=== PATIENT | female | born 1960 | race Caucasian/White ===

== ENCOUNTER 2019-03-02 06:15 | Day surgery (SDC) | payer OTHER ==
[2019-03-02] MEDS ORDERED: MIDAZOLAM 2 MG/2 ML VIAL IVP ONE (06:16)
[2019-03-02] MEDS ORDERED: GLYCOPYRROLATE 1 MG/5 ML VIAL IVP ONE (06:16)
[2019-03-02] MEDS ORDERED: ePHEDrine 50 MG/ML VIAL IVP ONE (06:16)
[2019-03-02] MEDS ORDERED: NEOSTIGMINE 1 MG/1 ML 10 ML MDV IVP ONE (06:16)
[2019-03-02] MEDS ORDERED: DEXAMETHASONE 4 MG/ML VIAL IVP ONE (06:16)
[2019-03-02] MEDS ORDERED: PROPOFOL 200 MG/20 ML VIAL IVP ONE (06:16)
[2019-03-02] MEDS ORDERED: ROCURONIUM 50 MG/5 ML VIAL IVP ONE (06:16)
[2019-03-02] MEDS ORDERED: LACTATED RINGERS 1,000 ML IV ONE ×2 (06:50→10:00)
[2019-03-02] MEDS ORDERED: BACITRACIN ZINC OINT 14 GM TOP ONE (07:11)
[2019-03-02] MEDS ORDERED: LIDOCAINE MPF 2%-EPI 1:200000 20 ML VIAL ONE (07:13)
[2019-03-02] MEDS ORDERED: CLINDAMYCIN 600 MG/50 ML 50 ML IV ONE (07:20)
[2019-03-02] MEDS ORDERED: CHLORHEXIDINE GLUCONATE 15 ML UDC PO ONE (07:21)
[2019-03-02] MEDS ORDERED: OXYMETAZOLINE HCL 100 SPRAYS BOTTLE NAS ONE (07:21)
--- NOTE | 2019-03-02 07:25 | ANESTHESIA ---
Pre-Anesthesia VS, & Labs - Diagnosis Deviation in opening/closing mandible, jaw pain - Procedure Coronoidectomy of mandible Vital Signs: Temp Pulse Resp BP Pulse Ox 37.1 C 60 16 161/95 H 100 03/02/19 06:32 03/02/19 06:32 03/02/19 06:32 03/02/19 06:32 03/02/19 06:32 Height 5 ft 5 in Weight (kg) 59.9 kg - NPO >8 hours - Is Patient ?: Not Applicable - Lab Results Lab results reviewed: No Home Medications and Allergies Home Medications: Ambulatory Orders Atenolol 25 mg PO DAILY 02/25/19 Vit A Palm,D3 in Cod Liver Oil [Sv Cod Liver Oil Softgel] 1 cap PO DAILY 02/25/19 Atenolol 25 mg PO DAILY 02/25/19 Vit A Palm,D3 in Cod Liver Oil [Sv Cod Liver Oil Softgel] 1 cap PO DAILY 02/25/19 Allergies/Adverse Reactions: Allergies Allergy/AdvReac Type Severity Reaction Status Date / Time almond Allergy Rash Verified 03/02/19 07:21 amoxicillin Allergy Hives Verified 03/02/19 07:15 cocoa Allergy Rash Verified 03/02/19 07:21 coconut Allergy Rash Verified 03/02/19 07:21 corn Allergy Rash Verified 03/02/19 07:21 hops Allergy Rash Verified 03/02/19 07:21 pineapple Allergy Rash Verified 03/02/19 07:21 shellfish derived Allergy Rash Verified 03/02/19 07:21 soybean Allergy Rash Verified 03/02/19 07:21 wheat Allergy Rash Verified 03/02/19 07:21 Yeast Allergy Rash Verified 03/02/19 07:21 yeast, dried Allergy Rash Verified 03/02/19 07:21 ascorbic acid AdvReac Rash Verified 03/02/19 07:15 red dye AdvReac Itching Verified 03/02/19 07:15 silver AdvReac Unknown Verified 03/02/19 07:15 [From Tegaderm AG Mesh] Anes History & Medical History - Anesthetic History Anesthesia Complications: reports: Other-see comment (Chipped tooth during intubation) Family history of Anesthesia Complications: Denies Family history of Malignant Hyperthermia: Denies - Medical History Cardiovascular: reports: Hypertension Pulmonary: reports: Sleep apnea Gastrointestinal: reports: None Urinary: reports: None Neuro: reports: Head injury (As a baby) Musculoskeletal: reports: Osteoarthritis Endocrine/Autoimmune: reports: None Blood Disorders: reports: None Skin: reports: None Smoking Status: Never smoker Psychosocial: reports: No issues indicated - Surgical History Eyes Ears Nose Throat (EENT): Other Gynecologic: section, Hysterectomy Orthopedic: Other Exam General: Alert, Oriented x3, Cooperative Dental: Poor dentition, Other (Extremely small mouth, difficulty opening mouth) Mouth Openin Fingerbreadth Neck Mobility: Normal Mallampati classification: III Thyromental Distance: 4-6 cm Respiratory: Lungs clear Cardiovascular: Regular rate Mental/Cognitive Status: Alert/Oriented X3 Cognitive Status: Within normal limits Plan Anesthesia Type: General Consent for Procedure(s) Verified and Reviewed: Yes Code Status: Attempt Resuscitation ASA classification: 2-Mild systemic disease Is this case an emergency?: No
[2019-03-02] MEDS ORDERED: LIDOCAINE 2%-EPI 1:100000 20 ML MDV SUBQ ONE (08:47)
[2019-03-02] MEDS: fentaNYL 100 MCG/2 ML VIAL ONE ×2 (10:32→10:40)
[2019-03-02 11:38] VITALS: BP 162/101
--- NOTE | 2019-03-02 19:51 | OPERATIVE REPORT ---
DATE OF SERVICE: 03/02/2019 Physician: Landry Shearer DDS PREOPERATIVE DIAGNOSES 1. Severe trismus. 2. History of mandible fracture and scar formation. POSTOPERATIVE DIAGNOSES 1. Severe trismus. 2. History of mandible fracture and scar formation. PROCEDURE PERFORMED 1. Myotomy of the left medial pterygoid muscle. 2. Coronoidectomy of the left mandibular coronoid process. 3. Manipulation of the mandible while under anesthesia. 4. Exploration of the left lateral pharyngeal space and floor of mouth, and incision of scar tissue for release of trismus. PRIMARY SURGEON: Landry Shearer DDS PAINT TINTER: Johana. PAINTER SHIPYARD: LANG Muñiz. ANESTHESIA TYPE: General anesthesia via nasoendotracheal intubation. IMPLANTS: None. SPECIMENS: None. ESTIMATED BLOOD LOSS: 50 mL INDICATIONS FOR PROCEDURE: Patient is a 58-year-old female who presented to my office with severe trismus. She reported that as a very young child, at about the age of 1, she had a mandible fracture, which was repaired, but she does not know the details. Her whole life she has had difficulty opening her mouth, and she believes it is because of a band of scar tissue in her left anterior tonsillar pillar area. It was decided that exploration of the area with incision of scar tissue as necessary and with possible coronoidectomy was indicated. The risks, benefits, and alternatives of this plan were discussed with the patient, including pain, swelling, bleeding, infection, damage to nerves with permanent numbness of the tongue, chin, and lip, recurrence of the trismus, need for further surgeries and worsening of the scar tissue and the trismus. Adequate time was given to answer all questions, and informed consent was obtained. DESCRIPTION OF PROCEDURE: The patient was brought to the main operating room and placed in the supine position on the operating table. General anesthesia was induced by the anesthesia team and the airway was secured with a nasal endotracheal tube. The eyes were protected with Tegaderms. The pressure points were padded and checked. The patient was prepped and draped in standard sterile fashion for an intraoral surgical procedure. Local anesthesia was achieved with 2% lidocaine with 1:100,000 epinephrine. A throat pack was placed. A Molt mouth prop was used to open the mouth maximally, and this achieved a measurement of 23 mm of maximum opening. The goal was to achieve a maximum opening of 30 mm intraoperatively. A lingual sulcular incision was made with a 15 blade. The incision followed the sulcus of tooth #18 distal posteriorly, and then had the classic 45-degree hockey stick distal buccal release. A #9 was used to delicately perform a subperiosteal dissection, taking care to avoid the areas of the lingual nerve as much as possible. Buccally, the area was also dissected up to the coronoid process of the mandible. Right off the bat, taut muscle fibers and scar tissue could be appreciated within the dissection on the medial aspect of the mandible. Blunt dissection was performed all around these muscles, and they appeared to be the medial pterygoid muscle. They were not incised sharply for fear of damaging the lingual nerve; however, a #9 was used to strip the medial pterygoid muscle off of the medial aspect of the mandible. Some of the taut muscle fibers, which did not become released by stripping the medial pterygoid off the medial aspect of the mandible, were dissected in a blunt fashion until they gave way and allowed for additional opening. The patient's mouth opening was remeasured, and it was found only be to about 26 mm, disappointing. Thus, a coronoidectomy was deemed necessary. Retractors were used to expose the lateral aspect of the coronoid process, and a fissure bur was used to perform the coronoidectomy. This was performed with a Seldin retractor on the medial aspect of the coronoid process to protect the soft tissues on the medial aspect, and it was performed with copious amounts of irrigation. The coronoid process was easily popped off and the bone that was left behind was smoothed out with the fissure bur. The mandible was then manipulated again to attempt to increase opening. Mouth opening was measured again but it only opened to about 28 mm. Further dissection in the floor of the mouth and in the lateral pterygoid space was performed. This was done with caution of the area where the inferior alveolar nerve entered the mandible, as well as with caution to stay subperiosteal to perform the dissection with blunt instruments only and with a soft and gentle gestures to avoid damaging the lingual nerve. The whole medial aspect of the mandible up to the plane of occlusion was stripped off in an attempt to increase mouth opening, but it did not seemed to increase significantly. The Molt mouth prop was then positioned on the left side of the mandible instead of the right where it had been previously, and a moderate amount of pressure was applied to it. As this happened, a satisfying sound of giving away could be heard audibly in the room, and the patient's mouth opening increased dramatically. Most likely, this was the sound of the medial pterygoid muscle where it inserted, where we had not been able to strip it as the stripping was blind, giving way the rest of the way. This resulted in a drastically increased mouth opening, the mouth opening of about 35 mm. Also, the sensation of tautness of the medial pterygoid muscle, which was previously palpable with a finger, was no longer present. The patient's mouth was then manipulated to attempt to open as much as possible, but opening up to 40 mm could not be achieved. This was considered adequate. The site was irrigated copiously. Soft tissues were reapproximated with 4-0 chromic gut suture. The throat pack was removed. The mouth was rinsed free of debris. The oropharynx was suctioned, and care of the patient was returned to the anesthesia team for uneventful extubation, emergence from anesthesia, and transfer to the PACU with the patient in stable condition. COMPLICATIONS: None. TD: 03/02/2019 18:41 LATASHA
== END 2019-03-02 06:16 | disposition home or self-care (01) ==
LOC: SDS 06:15
PROVIDERS: ATTEND Dentist Oral and Maxillofacial Surgery
PROC: [UNRECOGNIZED PROCEDURE] (2019-03-02)
PROC: 0NBV0ZZ Excision of Left Mandible, Open Approach (ICD-10-PCS; principal; 2019-03-02 07:30)
DX: M26.53 Deviation in opening and closing of the mandible (principal); R68.84 Jaw pain; M62.89 Other specified disorders of muscle; I10 Essential (primary) hypertension; G47.30 Sleep apnea, unspecified
CPT/HCPCS: 21070; 21299; A9270; J7120